=== PATIENT | female | born 1970 | race Caucasian/White ===

== ENCOUNTER → 2016-09-03 | Outpatient (CLI) | payer BC ==
[2014-10-19 15:00] VITALS: BP 145/80
[~2016-09-03] MED LIST: ALBU8.5H6 IH; ALPR1TAB2 PO; AMOX1TAB61 PO; CITA20TA5 PO; DIAZEPAM10 MG PO; ESCI20TA PO; HYDR-2666 PO; PANT40TA3 PO; TRAM50TA PO
--- NOTE | 2016-09-03 09:17 | KCIC ---
PROCEDURE Bilateral digital mammogram with CAD HISTORY Routine screening TECHNIQUE Bilateral digital routine views were obtained with computer-aided detection. COMPARISON none FINDINGS Density A: Predominantly fatty tissue. There is no suspicious mass, calcifications or areas of architectural distortion. IMPRESSION No suspicious findings. [Recommend routine screening mammography in one year.] This study was interpreted with the benefit of Computerized Aided Detection (CAD). Mammography is not 100% sensitive in detecting breast cancer. Therefore, a self breast exam and a clinical breast exam are very important. A negative mammogram does not negate a clinically suspicious finding and should not result in a delay in biopsying a clinically suspicious abnormality. BI-RADS category 1: Negative. Electronically signed by: Luciano Gutiérrez MD (Sep 03, 2016 09:15:52)
== END | disposition home or self-care (01) ==
LOC: KCIC MAMMO 08:06
PROVIDERS: ATTEND Advanced Practice Midwife
DX: Z12.31 Encounter for screening mammogram for malignant neoplasm of breast (principal)
CPT/HCPCS: G0202; 77067

== ENCOUNTER 2016-10-14 06:47 | Emergency (ER) | payer BC ==
[~2016-10-14] VITALS: Ht 170.2 cm; Wt 127.9 kg
[2016-10-14 07:00] VITALS: BP 162/75
[2016-10-14] MEDS ORDERED: IV NORMAL SALINE 1000ML BAG 1,000 ML IV SCH (07:08)
[2016-10-14] MEDS ORDERED: fentaNYL PF VIAL 100 MCG/2 ML VIAL IV PRN (07:15)
[2016-10-14] MEDS ORDERED: ONDANSETRON PF 4 MG/2 ML VIAL. IV ONE (07:15)
[2016-10-14 07:29] LABS: BILIRUBIN,URINE NEGATIVE (NEG); GLUCOSE,URINE NEGATIVE (NEG); NITRITE,URINE NEGATIVE (NEG); PH,URINE 5.5; PROTEIN,URINE 100 mg/dL (NEG-TRACE); UROBILINOGEN,URINE 0.2 mg/dL (0.2 mg/dL)
[2016-10-14 07:32] LABS: RBC,URINE TNTC /HPF (0-2)
[2016-10-14 07:33] LABS: BACTERIA,URINE MANY /HPF (0-FEW); SQUAMOUS EPITHELIAL CELL,UR MANY /LPF
[2016-10-14 07:46] LABS: BASO # 0.1 x10^3/uL (0.0-0.2); BASO % 1 % (0-3); EOS % 1 % (0-3); HEMATOCRIT 40.7 % (36.0-47.0); HEMOGLOBIN 13.1 g/dL (12.0-15.5); LYMPH % 16 % (24-48); MEAN CORPUSCULAR HEMOGLOBIN 27 pg (25-35); MEAN CORPUSCULAR HGB CONC 32 g/dL (31-37); MEAN CORPUSCULAR VOLUME 84 fL (79-100); MONO % 6 % (0-9); NEUT % 77 % (31-73); PLATELET COUNT 200 x10^3/uL (140-400); RED BLOOD COUNT 4.85 x10^6/uL (3.50-5.40); RED CELL DISTRIBUTION WIDTH 14.6 % (11.5-14.5); WHITE BLOOD COUNT 6.3 x10^3/uL (4.0-11.0)
--- NOTE | 2016-10-14 07:54 | RAD ---
CT abdomen and pelvis without contrast History: Left flank pain, left lower quadrant pain CT scan of the abdomen and pelvis was done without contrast. The lung bases are clear. There is no effusion. A liver lesion is not identified. The patient's had a cholecystectomy. Spleen and adrenal glands are normal. Pancreas is normal. There is a 5 mm calculus at the renal pelvis on the left. There is a 2 mm calculus at the upper pole of the left kidney. There is no intrarenal calculus in the right kidney. There is also a tiny punctate calculus in the mid left kidney. A ureteral calculus is not otherwise identified. Appendix is normal. Bowel pattern is normal. There is no adenopathy. Uterus and ovaries are normal. There is no free fluid in the pelvis. Impression: 1. 5 mm calculus at the renal pelvis on the left which is not currently obstructive but intermittently could be. 2. Other tiny intrarenal calculi left kidney. 3. No other ureteral calculus noted. 4. No other acute finding noted in the abdomen or pelvis. One or more of the following individualized dose reduction techniques were utilized for this examination: 1. Automated exposure control 2. Adjustment of the mA and/or kV according to patient size 3. Use of iterative reconstruction technique
[2016-10-14 07:57] LABS: CALCIUM 8.9 mg/dL (8.5-10.1); CREATININE 0.9 mg/dL (0.6-1.0); GFR 67.4; POTASSIUM 3.7 mmol/L (3.5-5.1)
[2016-10-14 08:02] LABS: ALBUMIN 3.9 g/dL (3.4-5.0); TOTAL BILIRUBIN 0.4 mg/dL (0.2-1.0); TOTAL PROTEIN 7.7 g/dL (6.4-8.2)
[2016-10-14] MEDS ORDERED: TAMS0.4C97 PO (08:13)
[2016-10-14] MEDS ORDERED: HYDR-971 PO (08:13)
--- NOTE | 2016-10-14 08:13 | PHYS DOC ---
Past Medical History Past Medical History: Anxiety, Depression Past Surgical History: Cholecystectomy, Tubal ligation, Other Additional Past Surgical Histo: left knee, radio frequency on back Alcohol Use: None Drug Use: None Adult General Chief Complaint Chief Complaint: ABDOMINAL PAIN HPI HPI Patient is a 46 year old female who was driven to the ED by her daughter with the complaint of severe pain in the left side of her abdomen. The pain woke her up early this morning and was severe, she had vomiting and dry heaves with it. She called her daughter who came to pick her up to bring her to the ED and when they were on their way here, the pain stopped. They decided to go back home and went back to sleep, then the pain woke her up again and was again severe, so she presented to the ED. Currently the pain is severe. It's described as sharp and stabbing. She's never had anything like this before. It's located on the left side of her mid back and around to the left side of her mid to lower abdomen. There is no pain on the right. She had no blood in her vomit. She's had no diarrhea. She denies possibility of . She has had her tubes tied and also is not sexually active. Last menstrual period October 02. She does not have a history of GI problems. She did have a cholecystectomy in the pain reminds her a little bit of her gallstone pain although the location is different. The patient is in good general health. Primary care physician Dr. Liu Review of Systems Review of Systems Constitutional: Denies fever or chills [] Eyes: Denies change in visual acuity, redness, or eye pain [] HENT: Denies nasal congestion or sore throat [] Respiratory: Denies cough or shortness of breath [] Cardiovascular: Denies chest pain GI: As in history of present illness : Denies dysuria or hematuria [] Musculoskeletal: Denies back pain or joint pain [] Integument: Denies rash or skin lesions [] Neurologic: Denies headache, focal weakness or sensory changes [] Current Medications Current Medications Current Medications Medications (Trade) Dose Ordered Sig/Bean Start Time Stop Time Status Last Admin Dose Admin Fentanyl Citrate (Fentanyl 2ml Vial) 50 mcg PRN Q15MIN PRN 10/14/16 07:15 10/15/16 07:14 5/29/17 07:48 50 MCG Ketorolac Tromethamine (Toradol) 30 mg 1X ONCE 10/14/16 08:15 10/14/16 08:16 Ondansetron HCl (Zofran) 4 mg 1X ONCE 10/14/16 07:15 10/14/16 07:16 DC 10/14/16 07:47 4 MG Sodium Chloride 1,000 ml @ 100 mls/hr Q10H 10/14/16 07:08 10/14/16 17:07 10/14/16 07:48 100 MLS/HR Tamsulosin HCl (Flomax) 0.4 mg 1X ONCE 10/14/16 08:15 10/14/16 08:16 Allergies Allergies Allergies Coded Allergies Type Severity Reaction Last Updated Verified No Known Drug Allergies 05/14/13 No Physical Exam Physical Exam Constitutional: Well developed, well nourished, obese, ambulatory, no acute distress, non-toxic appearance. [] HENT: Normocephalic, atraumatic, bilateral external ears normal, nose normal. [] Eyes: conjunctiva normal, no discharge. [] Neck: Normal range of motion, no stridor. [] Cardiovascular:Heart rate regular rhythm, no murmur [] Lungs & Thorax: Bilateral breath sounds clear to auscultation [] Abdomen: Bowel sounds normal, soft, obese, no tenderness, no masses, no pulsatile masses. Abdomen exam is benign. Skin: Warm, dry, no erythema, no rash. [] Back: No tenderness, no CVA tenderness. [] Extremities: No tenderness, no cyanosis, no clubbing, ROM intact, no edema. [] Neurologic: Alert and oriented X 3, normal motor function, normal sensory function, no focal deficits noted. [] Current Patient Data Vital Signs Vital Signs Date Time Temp Pulse Resp B/P (MAP) Pulse Ox O2 Delivery O2 Flow Rate FiO2 10/14/16 07:48 15 97 Room Air 10/14/16 07:00 97.7 81 162/75 (104) 97.7 Lab Values Laboratory Tests Test 10/14/16 06:13 10/14/16 06:57 10/14/16 07:38 POC Urine HCG, Qualitative Hcg negative (Negative) Urine Collection Type Unknown Urine Color Yellow Urine Clarity Cloudy Urine pH 5.5 Urine Specific [place] 1.025 Urine Protein 100 mg/dL (NEG-TRACE) Urine Glucose (UA) Negative mg/dL (NEG) Urine Ketones (Stick) Negative mg/dL (NEG) Urine Blood Large (NEG) Urine Nitrite Negative (NEG) Urine Bilirubin Negative (NEG) Urine Urobilinogen Dipstick 0.2 mg/dL (0.2 mg/dL) Urine Leukocyte Esterase Moderate (NEG) Urine RBC Tntc /HPF (0-2) Urine WBC 11-20 /HPF (0-4) Urine Squamous Epithelial Cells Many /LPF Urine Bacteria Many /HPF (0-FEW) Urine Mucus Mod /LPF White Blood Count 6.3 x10^3/uL (4.0-11.0) Red Blood Count 4.85 x10^6/uL (3.50-5.40) Hemoglobin 13.1 g/dL (12.0-15.5) Hematocrit 40.7 % (36.0-47.0) Mean Corpuscular Volume 84 fL (79-100) Mean Corpuscular Hemoglobin 27 pg (25-35) Mean Corpuscular Hemoglobin Concent 32 g/dL (31-37) Red Cell Distribution Width 14.6 % (11.5-14.5) H Platelet Count 200 x10^3/uL (140-400) Neutrophils (%) (Auto) 77 % (31-73) H Lymphocytes (%) (Auto) 16 % (24-48) L Monocytes (%) (Auto) 6 % (0-9) Eosinophils (%) (Auto) 1 % (0-3) Basophils (%) (Auto) 1 % (0-3) Neutrophils # (Auto) 4.9 x10^3uL (1.8-7.7) Lymphocytes # (Auto) 1.0 x10^3/uL (1.0-4.8) Monocytes # (Auto) 0.4 x10^3/uL (0.0-1.1) Eosinophils # (Auto) 0.1 x10^3/uL (0.0-0.7) Basophils # (Auto) 0.1 x10^3/uL (0.0-0.2) Sodium Level 146 mmol/L (136-145) H Potassium Level 3.7 mmol/L (3.5-5.1) Chloride Level 108 mmol/L (98-107) H Carbon Dioxide Level 27 mmol/L (21-32) Anion Gap 11 (6-14) Blood Urea Nitrogen 9 mg/dL (7-20) Creatinine 0.9 mg/dL (0.6-1.0) Estimated GFR (Cockcroft-Gault) 67.4 BUN/Creatinine Ratio 10 (6-20) Glucose Level 110 mg/dL (70-99) H Calcium Level 8.9 mg/dL (8.5-10.1) Total Bilirubin 0.4 mg/dL (0.2-1.0) Aspartate Amino Transferase (AST) 16 U/L (15-37) Alanine Aminotransferase (ALT) 25 U/L (14-59) Alkaline Phosphatase 63 U/L (46-116) Total Protein 7.7 g/dL (6.4-8.2) Albumin 3.9 g/dL (3.4-5.0) Albumin/Globulin Ratio 1.0 (1.0-1.7) Lipase 82 U/L (73-393) Laboratory Tests 10/14/16 07:38 Laboratory Tests 10/14/16 07:38 EKG EKG [] Radiology/Procedures Radiology/Procedures CT scan of the abdomen and pelvis read by the radiologist. There is a 5 mm calculus at the left renal pelvis which is not currently obstructive but intermittently could be. No other ureteral calculus. No other acute findings noted. [] Course & Med Decision Making Course & Med Decision Making Pertinent Labs and Imaging studies reviewed. (See chart for details) 46-year-old female presents with acute onset of left flank/left sided abdominal pain. The pain was severe, then went away, then returned. It does sound like a possible kidney stone. I discussed with the patient that we will give her IV fluids, IV pain and nausea medicines and do some tests, she is agreeable to that plan. Labs unremarkable for acute findings. CT scan does show a 5 mm stone high in the patient's left ureter. Discussed the diagnosis with the patient. She's now comfortable, watching TV with her family. We will try sending her home with NSAIDs, Flomax, hydrocodone. I emphasized if she has intractable pain at home she should return for admission. She agrees with the plan. She does have a ride home. [] Dragon Disclaimer Dragon Disclaimer This electronic medical record was generated, in whole or in part, using a voice recognition dictation system. Departure Departure Impression: Primary Impression: Renal colic on left side Additional Impression: Left ureteral stone Disposition: 01 HOME, SELF-CARE Condition: STABLE Referrals: ETJ LIU MD (PCP) Patient Instructions: Kidney Stones, [id number] Additional Instructions: As we discussed, you have a 5 mm stone high up in your left ureter, near your left kidney. It may pass, we will treat and hope for the best. Strain urine to see if it does pass. Ibuprofen 800 mg every 8 hours which will help with pain and also relax the ureter to help it pass. For more severe pain, hydrocodone as prescribed. This is an opiate, not while driving. It will be sedating and constipating. If you're using more than once or twice a day, take a laxative. This may be combined with ibuprofen. Flomax which helps relax the muscle of the ureter. Take at bedtime, you had one here in the ED, your next dose is due at bedtime Friday night, tonight. Drink plenty of fluids. Your urine should be light yellow like the color of lemonade. Follow-up with Dr. Liu in 3-5 days for recheck, sooner if problems. If your pain is too severe to be managed with medications at home, return to emergency, you may need to be admitted to the hospital if that happens. Scripts Hydrocodone/Apap 5-325 (NORCO 5-325 TABLET) 1 Each Tablet 1-2 TAB PO Q4-6HRS for kidney stone, #20 TAB Prov: KATHY RICCI MD 10/14/16 Tamsulosin Hcl (FLOMAX) 0.4 Mg Cap.er.24h 1 CAP PO DAILY for kidney stone, #14 CAP 11 Refills Prov: KATHY RICCI MD 10/14/16 Problem Qualifiers KATHY RICCI MD October 14, 2016 08:13
[2016-10-14] MEDS ORDERED: TAMSULOSIN 0.4 MG CAP.ER.24H. PO ONE (08:15)
[2016-10-14] MEDS ORDERED: KETOROLAC TROMETHAMINE 30 MG/ML INJ. IV ONE (08:15)
== END 2016-10-14 08:35 | disposition home or self-care (01) ==
LOC: ER 06:47
DX: N20.2 Calculus of kidney with calculus of ureter (principal); F41.9 Anxiety disorder, unspecified; F32.9 Major depressive disorder, single episode, unspecified; Z90.49 Acquired absence of other specified parts of digestive tract; Z98.51 Tubal ligation status
CPT/HCPCS: 36415; 74176; 80053; 81001; 81025; 83690; 85027; 87086; 96361; 96374; 96375; 99285; J1885; J2405; J3010; J7030

== ENCOUNTER → 2016-10-23 | Outpatient (CLI) | payer BC ==
[2016-10-14 07:00] VITALS: BP 162/75
[~2016-10-23] MED LIST changes: +HYDR-971 PO; +TAMS0.4C97 PO
--- NOTE | 2016-10-23 15:02 | KCIC ---
Examination: CT sinuses noncontrast: History: Chronic sinusitis Technique: Axial CT images of the sinuses were performed without contrast. Coronal and sagittal images also performed. Exposure: One or more of the following individualized dose reduction techniques were utilized for this examination: 1. Automated exposure control 2. Adjustment of the mA and/or kV according to patient size 3. Use of iterative reconstruction technique Technique: Noncontrast coronal images of the sinuses were obtained. Findings: No air-fluid levels are identified within the paranasal sinuses. The nasal cavity is unremarkable and the nasal septum is midline. No bony abnormality. Small mucous retention cyst or polyp identified in the left maxillary sinus at the junction of the anterior wall with the medial wall. The bilateral orbital globes appear intact. Impression: Small mucous retention cyst or polyp identified in the left maxillary sinus at the junction of the anterior wall with the medial wall. Electronically signed by: Jam Virk MD (10/23/2016 2:57 PM)
== END | disposition home or self-care (01) ==
LOC: KCIC CT 13:50
PROVIDERS: ATTEND Otolaryngology
DX: J32.9 Chronic sinusitis, unspecified (principal); N83.299 Other ovarian cyst, unspecified side; J33.8 Other polyp of sinus
CPT/HCPCS: 70486

== ENCOUNTER 2016-11-27 07:05 | Emergency (ER) | payer BC ==
[~2016-11-27] VITALS: Ht 170.2 cm; Wt 121.6 kg
[~2016-11-27 07:05] MED LIST changes: -ESCI20TA PO; +ESCITALOPRAM OX20 MG PO; -HYDR-2666 PO; +HYDR-2758 PO
--- NOTE | 2016-11-27 07:48 | PHYS DOC ---
Past Medical History Past Medical History: Anxiety, Depression, Kidney Stone Past Surgical History: Cholecystectomy, Tubal ligation, Other Additional Past Surgical Histo: left knee, radio frequency on back Alcohol Use: None Drug Use: None Adult General Chief Complaint Chief Complaint: ABDOMINAL PAIN HPI HPI Patient is a 46 year old female presents to the emergency department with a history of Kidney stone on the Left that measured 5 mm that was in September. Patient states that she is having the same pain and discomfort in which she had in September. Patient states she has pain that starts in her left lower back and radiates to her left lower abdominal area. She had a normal BM yesterday, denies urinary symptoms. Patient states she did have nausea and vomiting. She states she did not have any medication at home to take. She denies being asked to followup with urology. She denies fever, chills, or vaginal discharge. Patient did state she drove herself to the ED although can get someone to come after her if needed. Review of Systems Review of Systems Constitutional: Denies fever or chills [] Eyes: Denies change in visual acuity, redness, or eye pain [] HENT: Denies nasal congestion or sore throat [] Respiratory: Denies cough or shortness of breath [] Cardiovascular: No additional information not addressed in HPI [] GI: Denies abdominal pain, nausea, vomiting, bloody stools or diarrhea [] : Denies dysuria or hematuria [] Musculoskeletal: left flank pain with radiation of pain to left lower abdominal area Integument: Denies rash or skin lesions [] Neurologic: Denies headache, focal weakness or sensory changes [] Endocrine: Denies polyuria or polydipsia [] Current Medications Current Medications Current Medications Medications (Trade) Dose Ordered Sig/[facility] Start Time Stop Time Status Last Admin Dose Admin Ketorolac Tromethamine (Toradol) 30 mg 1X ONCE 11/27/16 08:15 11/27/16 08:16 DC 11/27/16 08:17 30 MG Ondansetron HCl (Zofran) 4 mg 1X ONCE 11/27/16 08:15 11/27/16 08:16 DC 11/27/16 08:17 4 MG Sodium Chloride 1,000 ml @ 1,000 mls/hr 1X ONCE 11/27/16 08:15 11/27/16 09:14 DC 11/27/16 08:18 1,000 MLS/HR Allergies Allergies Allergies Coded Allergies Type Severity Reaction Last Updated Verified No Known Drug Allergies 05/14/13 No Physical Exam Physical Exam Constitutional: Well developed, well nourished, no acute distress, non-toxic appearance. [] HENT: Normocephalic, atraumatic, bilateral external ears normal, oropharynx moist, no oral exudates, nose normal. [] Eyes: PERRLA, EOMI, conjunctiva normal, no discharge. [] Neck: Normal range of motion, no tenderness, supple, no stridor. [] Cardiovascular:Heart rate regular rhythm, no murmur [] Lungs & Thorax: Bilateral breath sounds clear to auscultation [] Abdomen: Bowel sounds hypoactive, soft, no tenderness, no masses, no pulsatile masses. [] Skin: Warm, dry, no erythema, no rash. [] Back: No tenderness, no CVA tenderness. [] Extremities: No tenderness, no cyanosis, no clubbing, ROM intact, no edema. [] Neurologic: Alert and oriented X 3, normal motor function, normal sensory function, no focal deficits noted. [] Psychologic: Affect normal, judgement normal, mood normal. [] Current Patient Data Vital Signs Vital Signs Date Time Temp Pulse Resp B/P (MAP) Pulse Ox O2 Delivery O2 Flow Rate FiO2 11/27/16 07:27 98.2 73 16 132/81 (98) 98 Room Air 98.2 Lab Values Laboratory Tests Test 11/27/16 07:19 11/27/16 08:10 Urine Color Yellow Urine Clarity Clear Urine pH 5.5 Urine Specific [place] <=1.005 Urine Protein Negative mg/dL (NEG-TRACE) Urine Glucose (UA) Negative mg/dL (NEG) Urine Ketones (Stick) Negative mg/dL (NEG) Urine Blood Large (NEG) Urine Nitrite Negative (NEG) Urine Bilirubin Negative (NEG) Urine Urobilinogen Dipstick 0.2 mg/dL (0.2 mg/dL) Urine Leukocyte Esterase Trace (NEG) Urine RBC 11-20 /HPF (0-2) Urine WBC Occ /HPF (0-4) Urine Squamous Epithelial Cells Few /LPF Urine Bacteria 0 /HPF (0-FEW) Urine Test Negative (NEG) White Blood Count 6.0 x10^3/uL (4.0-11.0) Red Blood Count 4.98 x10^6/uL (3.50-5.40) Hemoglobin 13.8 g/dL (12.0-15.5) Hematocrit 41.8 % (36.0-47.0) Mean Corpuscular Volume 84 fL (79-100) Mean Corpuscular Hemoglobin 28 pg (25-35) Mean Corpuscular Hemoglobin Concent 33 g/dL (31-37) Red Cell Distribution Width 15.3 % (11.5-14.5) H Platelet Count 206 x10^3/uL (140-400) Neutrophils (%) (Auto) 67 % (31-73) Lymphocytes (%) (Auto) 24 % (24-48) Monocytes (%) (Auto) 8 % (0-9) Eosinophils (%) (Auto) 1 % (0-3) Basophils (%) (Auto) 1 % (0-3) Neutrophils # (Auto) 4.0 x10^3uL (1.8-7.7) Lymphocytes # (Auto) 1.4 x10^3/uL (1.0-4.8) Monocytes # (Auto) 0.5 x10^3/uL (0.0-1.1) Eosinophils # (Auto) 0.1 x10^3/uL (0.0-0.7) Basophils # (Auto) 0.0 x10^3/uL (0.0-0.2) Sodium Level 145 mmol/L (136-145) Potassium Level 3.9 mmol/L (3.5-5.1) Chloride Level 108 mmol/L (98-107) H Carbon Dioxide Level 28 mmol/L (21-32) Anion Gap 9 (6-14) Blood Urea Nitrogen 14 mg/dL (7-20) Creatinine 0.9 mg/dL (0.6-1.0) Estimated GFR (Cockcroft-Gault) 67.4 BUN/Creatinine Ratio 16 (6-20) Glucose Level 106 mg/dL (70-99) H Calcium Level 8.7 mg/dL (8.5-10.1) Total Bilirubin 0.5 mg/dL (0.2-1.0) Aspartate Amino Transferase (AST) 17 U/L (15-37) Alanine Aminotransferase (ALT) 31 U/L (14-59) Alkaline Phosphatase 54 U/L (46-116) Total Protein 7.6 g/dL (6.4-8.2) Albumin 3.9 g/dL (3.4-5.0) Albumin/Globulin Ratio 1.1 (1.0-1.7) Laboratory Tests 11/27/16 08:10 Laboratory Tests 11/27/16 08:10 EKG EKG [] Radiology/Procedures Radiology/Procedures [][facility] [address] [place] [address] IMAGING REPORT Signed PATIENT: GABRIEL MARTINEZ ACCOUNT: [id number] : 1970 LOCATION: ER AGE: 46 SEX: F EXAM STATUS: REG ER ORD. PHYSICIAN: POLY LONGO CYTOTECHNOLOGIST/CYTOLOGY SUPERVISOR REASON: left flank pain with radiation around to lower abdominal area, HX stone May PROCEDURE: CT ABDOMEN PELVIS WO CONTRAST CT abdomen/pelvis without contrast 11/27/2016 at 0856 hours Indication: Left flank pain for years Comparison: Abdomen/pelvis 10/14/2016 Technique: Portable axial CT images of the abdomen and pelvis were acquired without intravenous contrast. Oral contrast was not administered. Findings: Lung bases are clear. Heart size is within normal limits. Evaluation of the solid abdominal viscera is limited by lack of intravenous contrast. The liver is normal. The spleen is normal. Bilateral adrenal glands are normal. The gallbladder is present without adjacent inflammatory changes. Pancreas is normal in appearance. The abdominal aorta is normal in course and caliber. IVC is patent. There are no enlarged lymph nodes in the abdomen or pelvis. There is no free intraperitoneal air. No free fluid within the abdomen or pelvis. There is a 5 mm nonobstructing calculus in the superior pole of the left kidney, slightly increased since 10/14/2016 where it measured 3-4 mm. There is a 2 mm nonobstructing calculus in the interpolar region of the left kidney, stable. There is a 7 mm calculus in the inferior pole the left kidney, which may represent the previously described calculus in the left renal pelvis. Alternatively, the previously described calculus may have passed and a new calculus may have formed. There is no hydronephrosis. No contour deforming renal mass. Small and large bowel are normal in caliber. A normal appendix is visualized. No pericolonic inflammatory changes are present. The urinary bladder is normal in appearance. No adnexal masses are identified. No suspicious osseous lesions are identified. Impression: 1. There is a 7 mm calculus in the inferior pole of the left kidney. This may represent the previously described calculus in the left renal pelvis which may have refluxed back into the renal calyx. Alternatively, the previously described stone may have passed and a new stone may have formed. There is no hydroureteronephrosis. 2. Additional nonobstructing calculi are identified in the left kidney measuring up to 5 mm in the superior pole. PQRS Compliance Statement: One or more of the following individualized dose reduction techniques were utilized for this examination: 1. Automated exposure control 2. Adjustment of the mA and/or kV according to patient size 3. Use of iterative reconstruction technique DICTATED and SIGNED BY: GISELLE JETT MD DATE: 11/27/16924 CC: POLY LONGO APRN; TEJ CRUM MD ~ Course & Med Decision Making Course & Med Decision Making Pertinent Labs and Imaging studies reviewed. (See chart for details) Patient's CBC, CMP were normal. Urine was positive for UTI as well as kidney stones in the pole of the left kidney. Patient will be provided with Macrobid to take for the urinary tract infection. She'll be encouraged to drink plenty of fluids such as water and cranberry juice. Avoid cranberry juice cocktail, carbonated beverages, citrus fruits and alcohol sees her considered irritants to the bladder. Patient will also be encouraged to follow up with urology at . Signs and symptoms to return back to emergency department as been provided. Patient was also instructed to strain all urine. She'll also be provided with Flomax. [] Dragon Disclaimer Dragon Disclaimer This electronic medical record was generated, in whole or in part, using a voice recognition dictation system. Departure Departure Impression: Primary Impression: Kidney stone Additional Impression: UTI (urinary tract infection) Disposition: 01 HOME, SELF-CARE Condition: STABLE Referrals: TEJ CRUM MD (PCP) Patient Instructions: Diet for Kidney Stones, Kidney Stones, [id number], Urinary Tract Infection, [id number] Additional Instructions: Activity as tolerated Medication as prescribed Drink plenty of fluids such as water and cranberry juice Avoid cranberry juice cocktail, carbonated beverages, citrus fruits, caffeine and alcohol as these are considered irritants to the bladder Strain all urine Followup with urology Return to emergency department as needed for signs and symptoms that become worse. These are Urologist at Dr. Cedrick Georges (Ronda Horn) [phone], Drs. Isidoro Daniels and Clive Diana (Harriet Todd) [phone], Drs. Hakan Feliciano and Andrew Pinedo (Lena Menendez) [phone], Fax Drs. Syeda Pathak, Geovanna Garcia and Sohan Badillo (Yoseph Aguilar) [phone] , Dr. Timbo Sheriff and CYNDY Roldan (Jonnie Bella) [phone], Fax Drs. Maximus Moser and Solitario Rowe (Rachel Alvarez) [phone], Fax Dr. Marcelo Pedraza and Maikol Angelo PA-C (Ana [place]) [phone], Fax Drs. Myah Barnes, Ace Pradhan and Luciano Hanna, III (Judi Mayberry) [phone], Scripts Nitrofurantoin Monohyd/M-Cryst (MACROBID 100 MG CAPSULE) 100 Mg Capsule 1 CAP PO BID, #14 CAP Prov: POLY LONGO APRN 11/27/16 Problem Qualifiers POLY LONGO APRN Nov 27, 2016 07:48
[2016-11-27 07:51] LABS: NEG OBC UR NEG; POS OBC UR POS
[2016-11-27 07:59] LABS: BILIRUBIN,URINE NEGATIVE (NEG); GLUCOSE,URINE NEGATIVE (NEG); NITRITE,URINE NEGATIVE (NEG); PH,URINE 5.5; PROTEIN,URINE NEGATIVE (NEG-TRACE); UROBILINOGEN,URINE 0.2 mg/dL (0.2 mg/dL)
[2016-11-27 08:03] LABS: BACTERIA,URINE 0 /HPF (0-FEW); SQUAMOUS EPITHELIAL CELL,UR FEW /LPF; WBC,URINE OCC /HPF (0-4)
[2016-11-27] MEDS ORDERED: IV NORMAL SALINE 1000ML BAG 1,000 ML IV ONE (08:15)
[2016-11-27] MEDS ORDERED: ONDANSETRON PF 4 MG/2 ML VIAL. IV ONE (08:15)
[2016-11-27] MEDS ORDERED: KETOROLAC TROMETHAMINE 30 MG/ML INJ. IV ONE (08:15)
[2016-11-27 08:16] LABS: BASO % 1 % (0-3); EOS % 1 % (0-3); HEMATOCRIT 41.8 % (36.0-47.0); HEMOGLOBIN 13.8 g/dL (12.0-15.5); LYMPH # 1.4 x10^3/uL (1.0-4.8); LYMPH % 24 % (24-48); MEAN CORPUSCULAR HEMOGLOBIN 28 pg (25-35); MEAN CORPUSCULAR HGB CONC 33 g/dL (31-37); MEAN CORPUSCULAR VOLUME 84 fL (79-100); MONO % 8 % (0-9); NEUT % 67 % (31-73); PLATELET COUNT 206 x10^3/uL (140-400); RED BLOOD COUNT 4.98 x10^6/uL (3.50-5.40); RED CELL DISTRIBUTION WIDTH 15.3 % (11.5-14.5)
[2016-11-27 08:26] LABS: CALCIUM 8.7 mg/dL (8.5-10.1); CREATININE 0.9 mg/dL (0.6-1.0); GFR 67.4; POTASSIUM 3.9 mmol/L (3.5-5.1)
[2016-11-27 08:31] LABS: ALBUMIN 3.9 g/dL (3.4-5.0); ALBUMIN/GLOBULIN RATIO 1.1 (1.0-1.7); TOTAL BILIRUBIN 0.5 mg/dL (0.2-1.0); TOTAL PROTEIN 7.6 g/dL (6.4-8.2)
--- NOTE | 2016-11-27 09:45 | RAD ---
CT abdomen/pelvis without contrast 11/27/2016 at 0856 hours Indication: Left flank pain for years Comparison: Abdomen/pelvis 10/14/2016 Technique: Portable axial CT images of the abdomen and pelvis were acquired without intravenous contrast. Oral contrast was not administered. Findings: Lung bases are clear. Heart size is within normal limits. Evaluation of the solid abdominal viscera is limited by lack of intravenous contrast. The liver is normal. The spleen is normal. Bilateral adrenal glands are normal. The gallbladder is present without adjacent inflammatory changes. Pancreas is normal in appearance. The abdominal aorta is normal in course and caliber. IVC is patent. There are no enlarged lymph nodes in the abdomen or pelvis. There is no free intraperitoneal air. No free fluid within the abdomen or pelvis. There is a 5 mm nonobstructing calculus in the superior pole of the left kidney, slightly increased since 10/14/2016 where it measured 3-4 mm. There is a 2 mm nonobstructing calculus in the interpolar region of the left kidney, stable. There is a 7 mm calculus in the inferior pole the left kidney, which may represent the previously described calculus in the left renal pelvis. Alternatively, the previously described calculus may have passed and a new calculus may have formed. There is no hydronephrosis. No contour deforming renal mass. Small and large bowel are normal in caliber. A normal appendix is visualized. No pericolonic inflammatory changes are present. The urinary bladder is normal in appearance. No adnexal masses are identified. No suspicious osseous lesions are identified. Impression: 1. There is a 7 mm calculus in the inferior pole of the left kidney. This may represent the previously described calculus in the left renal pelvis which may have refluxed back into the renal calyx. Alternatively, the previously described stone may have passed and a new stone may have formed. There is no hydroureteronephrosis. 2. Additional nonobstructing calculi are identified in the left kidney measuring up to 5 mm in the superior pole. PQRS Compliance Statement: One or more of the following individualized dose reduction techniques were utilized for this examination: 1. Automated exposure control 2. Adjustment of the mA and/or kV according to patient size 3. Use of iterative reconstruction technique
[2016-11-27 10:00] VITALS: BP 157/75
[2016-11-27] MEDS ORDERED: NITR100C62 PO (10:05)
[2016-11-27] MEDS ORDERED: KETO10TA PO (10:07)
[2016-11-27] MEDS ORDERED: ONDA4TAB10 SL (10:07)
== END 2016-11-27 10:35 | disposition home or self-care (01) ==
LOC: ER 07:05
DX: N20.0 Calculus of kidney (principal); N39.0 Urinary tract infection, site not specified; Z98.51 Tubal ligation status; Z90.49 Acquired absence of other specified parts of digestive tract; Z98.890 Other specified postprocedural states
CPT/HCPCS: 36415; 74176; 80053; 81001; 81025; 85027; 87086; 96361; 96374; 96375; 99285; J1885; J2405; J7030

== ENCOUNTER 2016-12-04 12:50 | Emergency (ER) | payer BC ==
[~2016-12-04] VITALS: Ht 170.2 cm; Wt 121.6 kg
[~2016-12-04 12:50] MED LIST changes: +KETO10TA PO; +NITR100C62 PO; +ONDA4TAB10 SL
--- NOTE | 2016-12-04 13:27 | PHYS DOC ---
Past Medical History Past Medical History: Anxiety, Depression, Kidney Stone Past Surgical History: Cholecystectomy, Tubal ligation, Other Additional Past Surgical Histo: left knee, radio frequency on back Alcohol Use: None Drug Use: None Adult General Chief Complaint Chief Complaint: BLOOD IN URINE HPI HPI This is a pleasant 46-year-old female who presents with hematuria that began earlier this morning. Patient was concerned with her dysuria or hematuria frequency that was associated with her recent kidney stone diagnosis. She was diagnosed last week in our ER with a kidney stone a 5 mm and a 7 mm stone within the kidney last week. She called ask a nurse who advised with her hematuria to return to the ER. Patient's pain is moderate in nature described as a 6 of 10 worse with urination. It does radiate from the back to the lower flank on the left side. This is consistent with a diagnosis of her prior kidney stones. Patient denies any fevers denies any chills but has had some diaphoresis with pain in waves. Patient states nothing really makes the pain better or worse. Patient denies any diarrhea vomiting or other systemic symptoms. Patient also denies any trauma denies any vaginal bleeding. IMAGING REPORT Signed PATIENT: GABRIEL MARTINEZ ACCOUNT: [id number] : 1970 LOCATION: ER AGE: 46 SEX: F EXAM STATUS: REG ER ORD. PHYSICIAN: POLY LONGO APRN REASON: left flank pain with radiation around to lower abdominal area, HX stone May PROCEDURE: CT ABDOMEN PELVIS WO CONTRAST CT abdomen/pelvis without contrast 11/27/2016 at 0856 hours Indication: Left flank pain for years Comparison: Abdomen/pelvis 10/14/2016 Technique: Portable axial CT images of the abdomen and pelvis were acquired without intravenous contrast. Oral contrast was not administered. Findings: Lung bases are clear. Heart size is within normal limits. Evaluation of the solid abdominal viscera is limited by lack of intravenous contrast. The liver is normal. The spleen is normal. Bilateral adrenal glands are normal. The gallbladder is present without adjacent inflammatory changes. Pancreas is normal in appearance. The abdominal aorta is normal in course and caliber. IVC is patent. There are no enlarged lymph nodes in the abdomen or pelvis. There is no free intraperitoneal air. No free fluid within the abdomen or pelvis. There is a 5 mm nonobstructing calculus in the superior pole of the left kidney, slightly increased since 10/14/2016 where it measured 3-4 mm. There is a 2 mm nonobstructing calculus in the interpolar region of the left kidney, stable. There is a 7 mm calculus in the inferior pole the left kidney, which may represent the previously described calculus in the left renal pelvis. Alternatively, the previously described calculus may have passed and a new calculus may have formed. There is no hydronephrosis. No contour deforming renal mass. Small and large bowel are normal in caliber. A normal appendix is visualized. No pericolonic inflammatory changes are present. The urinary bladder is normal in appearance. No adnexal masses are identified. No suspicious osseous lesions are identified. Impression: 1. There is a 7 mm calculus in the inferior pole of the left kidney. This may represent the previously described calculus in the left renal pelvis which may have refluxed back into the renal calyx. Alternatively, the previously described stone may have passed and a new stone may have formed. There is no hydroureteronephrosis. 2. Additional nonobstructing calculi are identified in the left kidney measuring up to 5 mm in the superior pole. PQRS Compliance Statement: One or more of the following individualized dose reduction techniques were utilized for this examination: 1. Automated exposure control 2. Adjustment of the mA and/or kV according to patient size 3. Use of iterative reconstruction technique DICTATED and SIGNED BY: GISELLE JETT MD DATE: 11/27/16 0925 CC: POLY LONGO APRN; TEJ CRUM MD ~ Review of Systems Review of Systems Constitutional: Denies fever or chills patient does complain of diaphoresis with waves of pain. Eyes: Denies change in visual acuity, redness, or eye pain [] HENT: Denies nasal congestion or sore throat [] Respiratory: Denies cough or shortness of breath [] Cardiovascular: No additional information not addressed in HPI [] GI: He does complain of left flank pain no nausea no vomiting or diarrhea. [] : He does complain of dysuria and hematuria Musculoskeletal: Denies back pain or joint pain [] Integument: Denies rash or skin lesions [] Neurologic: Denies headache, focal weakness or sensory changes [] Endocrine: Denies polyuria or polydipsia [] Current Medications Current Medications Current Medications Medications (Trade) Dose Ordered Sig/Bean Start Time Stop Time Status Last Admin Dose Admin Ketorolac Tromethamine (Toradol Im) 60 mg 1X ONCE 12/04/16 13:30 12/04/16 13:31 DC 12/04/16 13:31 60 MG Ondansetron HCl (Zofran Odt) 4 mg 1X ONCE 12/04/16 13:30 12/04/16 13:31 DC 12/04/16 13:30 4 MG Allergies Allergies Allergies Coded Allergies Type Severity Reaction Last Updated Verified No Known Drug Allergies 05/14/13 No Physical Exam Physical Exam Constitutional: Well developed, well nourished, no acute distress, non-toxic appearance. Patient is obese Cardiovascular:Heart rate regular rhythm, no murmur [] Lungs & Thorax: Bilateral breath sounds clear to auscultation [] Abdomen: Bowel sounds normal, soft, no tenderness, no masses, no pulsatile masses. [] Skin: Warm, dry, no erythema, no rash. [] Back: No tenderness, no CVA tenderness. [] Current Patient Data Vital Signs Vital Signs Date Time Temp Pulse Resp B/P (MAP) Pulse Ox O2 Delivery O2 Flow Rate FiO2 12/04/16 13:05 98.4 83 34 146/87 (106) 98 Room Air 98.4 Lab Values Laboratory Tests Test 12/04/16 14:03 12/04/16 14:55 POC Urine HCG, Qualitative Hcg negative (Negative) Urine Collection Type Unknown Urine Color Cheryl Urine Clarity Cloudy Urine pH 5.5 Urine Specific [place] 1.020 Urine Protein Negative mg/dL (NEG-TRACE) Urine Glucose (UA) Negative mg/dL (NEG) Urine Ketones (Stick) 40 mg/dL (NEG) Urine Blood Negative (NEG) Urine Nitrite Negative (NEG) Urine Bilirubin Small (NEG) Urine Urobilinogen Dipstick 0.2 mg/dL (0.2 mg/dL) Urine Leukocyte Esterase Moderate (NEG) Urine RBC Occ /HPF (0-2) Urine WBC 11-20 /HPF (0-4) Urine Squamous Epithelial Cells Mod /LPF Urine Bacteria Few /HPF (0-FEW) Urine Mucus Marked /LPF EKG EKG [] Radiology/Procedures Radiology/Procedures [] IMAGING REPORT Signed PATIENT: GABRIEL MARTINEZ ACCOUNT: [id number] : 1970 LOCATION: ER AGE: 46 SEX: F EXAM STATUS: REG ER ORD. PHYSICIAN: EZEKIEL COLEMAN MD REASON: flank pain left known kidney stone PROCEDURE: KUB INDICATION: flank pain left known kidney stone COMPARISON: 11/27/2016 IMPRESSION: 2 views of abdomen and pelvis obtained. 5 mm calcification in the left hemipelvis. Although this could be secondary to the patient's left adnexal calcification seen on recent CT a left distal ureter stone is within the differential. There is bowel content projecting over the lower pole the left kidney which makes evaluation for residual left renal calculus Limited. Surgical clips right-side of abdomen. Degenerative changes of lower lumbar spine. DICTATED and SIGNED BY: MEENA MCNAIR MD DATE: 12/04/16 2214 CC: EZEKIEL COLEMAN MD; TEJ CRUM MD ~ Course & Med Decision Making Course & Med Decision Making Pertinent Labs and Imaging studies reviewed. (See chart for details) [] Patient presented with hematuria and lower abdominal pain. Flank with a history consistent with kidney stones. I have reviewed her old CAT scan results and determine that we will just complete a KUB to see if the stones removed. Patient also dominate a urinalysis to ensure that she is none detected. At this time she is able to tolerate oral fluid challenges to drink orally she was provided ODT Zofran and Toradol for her pain. We will use no narcotics on her today because she is driven to the hospital. time Is now 126. Time is now 2:10 PM patient feels markedly better after Toradol and Zofran. Waiting for urinalysis to be completed acute ulcers are noted and reviewed there is a small calcified nodule within the left hemipelvis likely associated with her prior kidney stone Time is now 3:06 patient's urinalysis urine [id number] test is negative pending urinalysis. Time is now 343 urinalysis finally returns is considerably contaminated it demonstrates red blood cells, white blood cells, bacteria and epithelial cells in great amounts Impression: Nephrolithiasis, hematuria, abdominal pain Disposition: PCP follow-up urology follow-up appointment rescheduled on Friday next week. Please return for any new or increasing symptoms or if you have any questions or concerns. Dragon Disclaimer Dragon Disclaimer This electronic medical record was generated, in whole or in part, using a voice recognition dictation system. Departure Departure Impression: Primary Impression: Kidney stone Additional Impression: Hematuria Disposition: HOME, SELF-CARE Condition: IMPROVED Referrals: TEJ CRUM MD (PCP) Patient Instructions: Hematuria, Adult, Kidney Stones Additional Instructions: Please return for any new or increasing symptoms or feel any question concerns. I would advise that you follow-up with urologist as planned please return for any fevers greater than 102.2 or inability to urinate greater than 8-12 hours. Scripts Ondansetron (ZOFRAN ODT) 4 Mg Tab.rapdis 4 MG PO BID Y for NAUSEA/VOMITING for 5 Days, #10 TAB Prov: EZEKIEL COLEMAN MD 12/04/16 Naproxen (NAPROSYN) 500 Mg Tablet 1 TAB PO BID, #14 TAB 1 Refill Prov: EZEKIEL COLEMAN MD 12/04/16 Problem Qualifiers EZEKIEL COLEMAN MD Dec 04, 2016 13:27
[2016-12-04] MEDS ORDERED: KETOROLAC TROMETHAMINE 60 MG/2 ML INJ. IM ONE (13:30)
[2016-12-04] MEDS ORDERED: ONDANSETRON ODT 4 MG TAB.RAPDIS. PO ONE (13:30)
--- NOTE | 2016-12-04 14:13 | RAD ---
INDICATION: flank pain left known kidney stone COMPARISON: 11/27/2016 IMPRESSION: 2 views of abdomen and pelvis obtained. 5 mm calcification in the left hemipelvis. Although this could be secondary to the patient's left adnexal calcification seen on recent CT a left distal ureter stone is within the differential. There is bowel content projecting over the lower pole the left kidney which makes evaluation for residual left renal calculus Limited. Surgical clips right-side of abdomen. Degenerative changes of lower lumbar spine.
[2016-12-04 15:06] LABS: BILIRUBIN,URINE SMALL (NEG); GLUCOSE,URINE NEGATIVE (NEG); NITRITE,URINE NEGATIVE (NEG); PH,URINE 5.5; PROTEIN,URINE NEGATIVE (NEG-TRACE); UROBILINOGEN,URINE 0.2 mg/dL (0.2 mg/dL)
[2016-12-04] MEDS ORDERED: ONDA4TAB10 PO (15:11)
[2016-12-04] MEDS ORDERED: NAPR500T PO (15:11)
[2016-12-04 15:32] LABS: BACTERIA,URINE FEW /HPF (0-FEW); RBC,URINE OCC /HPF (0-2); SQUAMOUS EPITHELIAL CELL,UR MOD /LPF
[2016-12-04 15:41] VITALS: BP 140/83
== END 2016-12-04 15:45 | disposition home or self-care (01) ==
LOC: ER 12:50
DX: N20.0 Calculus of kidney (principal); R31.9 Hematuria, unspecified; Z90.49 Acquired absence of other specified parts of digestive tract; Z98.51 Tubal ligation status; Z98.890 Other specified postprocedural states
CPT/HCPCS: 74000; 81001; 81025; 87086; 96372; 99285; J1885; Q0162

== ENCOUNTER → 2019-12-03 | Outpatient (CLI) | payer BC ==
[~2019-12-03] MED LIST changes: -CITA20TA5 PO; +CITA20TA6 PO; +CITA40TA5 PO; -HYDR-2758 PO; +HYDR-2761 PO; +HYDR-3164 PO; -HYDR-971 PO; +IOHEXOL 180 MG/ML 10 ML VIAL. ONE; +NAPR-683 PO; +ONDA4TAB10 PO; -PANT40TA3 PO; +PANT40TA77 PO; +TRIA1CAP3 PO; +methylPREDNISolone ACETATE 40 MG/ML VIAL. ONE; +methylPREDNISolone ACETATE 80 MG/ML VIAL. ONE
--- NOTE | 2019-12-03 14:14 | PAIN ---
DATE OF SERVICE: 12/03/2019 INITIAL CONSULTATION FOR PAIN CLINIC CHIEF COMPLAINT: Low back and bilateral lower extremity pain, right greater than left. HISTORY OF PRESENT ILLNESS: This is a 49-year-old female who presents with history of pain for many years in the low back and bilateral lower extremities, worse over the past 6-8 months or so without any specific injury or action that she is aware of, but the patient reports the pain is getting worse with daily activities, working, standing, walking, changing positions, awakens her from sleep about once a night. The patient reports it does not affect her walking significantly, but does when she is on her feet, standing and bending for more than even a few minutes. The patient reports it can affect her bowel or bladder control, but no incontinence, just increased frequency. The patient reports the pain is across the low back into the posterior gluteus, posterior thighs and posterior calves, again worse on the right than the left, but present in both legs. The patient reports it is sharp, changes during the day, worse with activity. Again, it is described as tingling, intermittent in intensity, aching in the back, radiating to the lower extremities. The patient rates her disability score 0-10, 10 being the worst, is a 5 with family home responsibilities and social activity, 0 with recreation, 3 with occupation and self-care, 0 with sexual behavior, 1 with life support activities. The patient has been taking ovvy-biw-dajsgde Tylenol intermittently, which helps only in small amount. She has also had chiropractic treatment, which does help, but only temporarily and she has had that ongoing for many years and most recently about 1 week ago. The patient reports no other complaints, no other studies or therapies performed at this time. PAST MEDICAL HISTORY: Significant for hypertension, obesity, arthritis. PREVIOUS SURGERY: Include pilonidal cystectomy at age 21, tubal ligation in 2004, cholecystectomy in 2009, left knee surgery in 2012 and again in 2014. CURRENT MEDICATIONS: Include citalopram and triamterene. ALLERGIES: The patient has no known drug allergies. FAMILY HISTORY: Significant for no major medical problems or conditions that she is aware of. SOCIAL HISTORY: The patient drinks about 1 alcoholic drink every 2-3 months, does not smoke. Denies any illegal, illicit or recreational drugs. 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 Reports she is not only in a sedentary position at her desk, she is up and down, moving items and is on her feet for lot of her working day as well. REVIEW OF SYSTEMS: The patient's review of systems is positive for those items mentioned in history of present illness. All systems reviewed and otherwise negative. It is complete, full and well documented on the patient's chart. PHYSICAL EXAMINATION: VITAL SIGNS: The patient's blood pressure is 145/82, pulse 85, respirations 18, temperature 98.0 degrees Fahrenheit, height is 5 feet 7 inches and weight is 310 pounds. GENERAL: The patient is awake, alert, oriented, appropriate, very pleasant demeanor. HEENT: Shows normocephalic, atraumatic. Extraocular movements are intact and symmetrical. Oral cavity: Mucous membranes moist and pink. Dentition is intact. NECK: Shows anterior throat supple without palpable lymphadenopathy noted. Swallow reflex symmetrical. CHEST: Shows normal on inspection. Breath sounds clear to auscultation bilaterally. HEART: Shows S1, S2 clear. No murmurs auscultated. ABDOMEN: Soft, nontender, obese, nondistended. No palpable organomegaly is noted. No rebound or guarding demonstrated. BACK: Shows spine grossly in the midline. Normal appearing thoracic kyphosis. Some slight flattening of lumbar lordotic curvature. Lumbar paraspinous muscle shows symmetrical on inspection, with palpation shows some moderate tenderness diffusely bilaterally going diffusely without significant radiation. The patient does show good rotational motion of lumbar spine, both laterally greater than 10 degrees right and left as well as extension, but without significant pain with forward flexion. No specific tenderness over the spinous processes over the sacroiliac regions. Some minor tenderness over the right-sided posterior superior iliac spine, but diffusely tender in the low lumbar distribution of the paraspinous muscles diffusely bilaterally without trigger points or radiation. EXTREMITIES: The patient's lower extremities show deep tendon reflexes at 2+ in the patellar, 1+ tendo-calcaneus tendons. Motor exam is strong with 5/5 dorsiflexion, extension, quadriceps and hamstring flexion symmetrical. Peripheral pulses are 1+ posterior tibia. No peripheral edema is noted bilaterally. Lower extremities are warm and dry to touch, equal in color and appearance. Straight leg raise noted to be positive on the right about 45 degrees, but decreased with knee flexion, left side is negative. Gaenslen's and Kyle's maneuvers are grossly negative bilaterally. The patient is able to stand, stand on her toes without significant difficulty, walks with a normal-appearing gait, does not appear to favor the right or left lower extremity significantly with a short walking distance in the office today, does not use any assistive devices such as canes or walkers to ambulate. SKIN: Shows warm and dry, good turgor. No edema. No sores, rashes or bruising throughout. IMPRESSION: 1. This is a 49-year-old female with a long history of low back pain, more recently 6-8 months, radiating pain in the lower extremities, right greater than left in a radicular fashion. 2. Arthritis. 3. Hypertension. 4. Obesity. PLAN: Options were discussed with the patient including conservative medical management, physical therapy, interventional techniques and she would like to pursue interventional techniques. We discussed a lumbar epidural steroid injection using description as well as anatomical models to describe the procedure. Risks were then discussed including, but not limited to bleeding, infection, possibility of epidural hematoma, subsequent neurological compromise, dural puncture, headaches, spinal cord and/or nerve damage, side effects of steroid medication and poor results regarding pain control. The patient understands and wished to proceed. The patient will return to clinic in approximately 2 weeks for followup. She was counseled on return appointment, activity level and side effects to be aware of. DIAGNOSES: Lumbar radiculopathy with lumbar degenerative disk disease. PROCEDURE: Lumbar epidural steroid injection, translaminar approach at L5-S1 level using C-arm fluoroscopic guidance under sterile prep and drape using local anesthetic. MEDICATION INJECTED: A total of 120 mg Depo-Medrol plus 10 mL preservative-free normal saline and 2 mL of contrast. CONDITION AT DISCHARGE: Stable. The patient tolerated the procedure well, had no complications. BRANDY MARTINEZ MD DR: OSCAR/jason JOB#: [id number] / [id number] TEJ Falcon MD
== END | disposition home or self-care (01) ==
LOC: PNCL 10:34
PROVIDERS: ATTEND Anesthesiology
DX: M51.16 Intervertebral disc disorders with radiculopathy, lumbar region (principal); M19.90 Unspecified osteoarthritis, unspecified site; I10 Essential (primary) hypertension; M79.662 Pain in left lower leg; M79.661 Pain in right lower leg; Z79.899 Other long term (current) drug therapy; Z98.51 Tubal ligation status; Z98.890 Other specified postprocedural states
CPT/HCPCS: 62323; J1030; J1040; Q9965

== ENCOUNTER → 2019-12-17 | Outpatient (CLI) | payer BC ==
--- NOTE | 2019-12-17 10:16 | PAIN ---
DATE OF SERVICE: 12/17/2019 PROGRESS NOTE FOR PAIN CLINIC DIAGNOSIS: Lumbar radiculopathy with lumbar degenerative disk disease. HISTORY OF PRESENT ILLNESS: The patient is a 49-year-old female who returns for followup status post lumbar epidural steroid injection x 1. The patient reports about 50% improvement, initially she was doing much better, but she slipped and fell on some wet stairs about 2 days after her injection and the pain was beginning to return in the low back and left lower extremity. The patient reports still with about 50% better than it was. The patient reports it is a 9 on a scale of 10 at its worst over the past week, 5 on average, 3 at its least and is a 5 today. The patient reports it can be sharp and dull in the low back, radiating, becoming more constant with walking, standing, changing positions or sitting for a prolonged period. The patient reports it is generally better with lying down, does not awaken her from sleep at night. The patient reports no new motor or sensory deficits, no new bowel or bladder incontinence or other complaints. PHYSICAL EXAMINATION: VITAL SIGNS: The patient's blood pressure 140/77, pulse 85, respirations 18, temperature 98.6 degrees Fahrenheit, height is 5 feet 7 inches, weight is 308 pounds. GENERAL: The patient is awake, alert, oriented, appropriate, very pleasant demeanor. HEENT: Shows normocephalic, atraumatic. Extraocular movements are intact and symmetrical. Oral cavity shows mucous membranes moist and pink. Dentition is intact. NECK: Shows anterior throat supple without palpable lymphadenopathy noted. Swallow reflex symmetrical. CHEST: Shows normal on inspection. Breath sounds are clear bilaterally. No rales, rhonchi or wheezes auscultated. HEART: Shows S1, S2 clear. No murmurs auscultated. ABDOMEN: Soft, nontender, nondistended. No palpable organomegaly is noted. No rebound or guarding demonstrated. BACK: Shows spine grossly in the midline, slight exaggerated thoracic kyphosis and minor flattening of lumbar lordotic curvature. Lumbar paraspinous muscle shows symmetrical on inspection, on palpation shows some moderate tenderness diffusely bilaterally, but only diffusely without significant radiation. The patient shows good rotational motion of lumbar spine, both laterally as well as extension and flexion without significant difficulty. EXTREMITIES: The patient's lower extremities show deep tendon reflexes 2+ in the patellar, 1+ tendo-calcaneus tendons. Motor exam is 5/5 with dorsiflexion, extension bilaterally. Peripheral pulses are 1+ posterior tibia. No peripheral edema is noted. Options were discussed with the patient. The patient's old chart was reviewed as her current medication regimen updated. Current review of systems updated today as well. We will proceed with a second in a series of lumbar epidural steroid injection today with fluoroscopic guidance. Risks were discussed including but not limited to bleeding, infection, possibility of epidural hematoma, subsequent neurological compromise, dural puncture, headaches, spinal cord and/or nerve damage, side effects of steroid medication and poor results regarding pain control. The patient understands and wished to proceed. The patient will return to clinic in approximately 2 weeks for followup, was counseled on return appointment, activity level and side effects to be aware of. DIAGNOSIS: Lumbar radiculopathy with lumbar degenerative disk disease. PROCEDURE: Lumbar epidural steroid injection, translaminar approach at L5-S1 level using C-arm fluoroscopic guidance under sterile prep and drape using local anesthetic. MEDICATION INJECTED: A total of 120 mg Depo-Medrol plus 10 mL of preservative-free normal saline and 2 mL of contrast. CONDITION AT DISCHARGE: Stable. The patient tolerated procedure well, had no complications. BRANDY MARTINEZ MD DR: OSCAR/jason JOB#: [id number] / [id number]
== END | disposition home or self-care (01) ==
LOC: PNCL 09:23
PROVIDERS: ATTEND Anesthesiology
DX: M51.16 Intervertebral disc disorders with radiculopathy, lumbar region (principal); Z79.899 Other long term (current) drug therapy
CPT/HCPCS: 62323; J1030; J1040; Q9965

== ENCOUNTER → 2020-02-15 | Outpatient (CLI) | payer BC ==
--- NOTE | 2020-02-15 09:17 | PDOC ---
Progress Note - Pain Clinic Date of Service: DOS: DATE: 02/15/20 TIME: 09:12 Diagnosis: Dx: Lumbar radiculopathy with lumbar degenerative disc disease Cervical radiculopathy with cervical degenerative disc disease History or Present Illness: HPI: 49-year-old female returns follow-up status post lumbar epidural steroid injections x2 last seen December 17, 2019. Patient reports did very well with her l ow back and left lower extremity pain about 50% improvement overall and still improved patient's chief complaint however is pain in the base the neck and right upper extremity radiating in the right arm shoulder forearm and hand with numbness and tingling stabbing described as radiating and severe with repetitive motions weight bearing lifting reaching over her head with her right arm patient reports is been going on for about 2 months now actually increasing not the result of any specific injury or accident that she is aware of rates her pain is a 10 on scale 10 is worse over the past week 9 on average 8 its least is a 9 today patient reports it can cause headaches difficulty with sleeping especially laying on her left side causing pain on the right patient reports no loss of motor function but significant fatigability with the right upper extremity with any repetitive motion weightbearing weight lifting or reaching. Physical Exam: VS: Blood pressure is 154/113 pulse 99 respiration 16 temperature is 90.5 F and weight is 305 pounds PE: PHYSICAL EXAMINATION: GENERAL: The patient is awake, alert, oriented, appropriate, very pleasant demeanor HEENT: Shows normocephalic, atraumatic. Extraocular movements are intact and symmetrical. Oral cavity: Mucous membranes moist and pink. NECK: Shows anterior throat supple without palpable lymphadenopathy noted. Swallow reflex symmetrical. CHEST: Shows normal on inspection. Breath sounds are clear bilaterally, no r ales rhonchi or wheezes auscultated. HEART: Shows S1, S2 clear. No murmurs auscultated. ABDOMEN: Soft, nontender, nondistended, obese. No palpable organomegaly is noted. No rebound or guarding demonstrated. BACK: Shows spine grossly in the midline. Normal-appearing cervical lordotic curvature. There is slightly increased thoracic kyphosis, some minor flattening of the lumbar lordotic curvature. Lumbar paraspinous muscles show symmetrical on inspection, on palpation shows some moderate tenderness diffusely throughout the upper, middle and lower distribution of the paraspinous muscles bilaterally without specific trigger points, without radiation of pain. The patient has good rotational motion of the lumbar spine, both laterally as well as extension and flexion without significant difficulty. No tenderness over the spinous processes, sacrum or sacroiliac regions. EXTREMITIES: upper extremities show deep tendon reflexes 2+ in the biceps and triceps tendons. Motor exam is 4 on a scale of 5 with right meterman, biceps and triceps flexion and 5/5 on the left. Peripheral pulses are 2+ radial. No peripheral edema is noted bilaterally. Upper extremities are warm and dry to touch, equal in color and appearance. Shoulder shrug is strong and intact without loss of strength on resistance but with moderate pain base the neck and the right shoulder this is true with abduction of the right shoulder as well but no loss of strength on resistance. SKIN: Shows warm and dry, good turgor. No edema. No sores, rashes or bruising throughout. Procedure: Procedure: Options were discussed with the patient. Patient's old chart was reviewed as her current medication regimen updated current review of systems updated today as well. We will proceed with a cervical epidural steroid injection today with fluoroscopic guidance. Risks were discussed including but not limited to: Bleeding, infection, possibility of epidural hematoma and subsequent neurological compromise, dural puncture, headaches, spinal cord and/or nerve damage, side effects of steroid medication, and poor results regarding pain control. Patient understands wished to proceed. Patient return to clinic in approximate 2 weeks for follow-up was counseled as to return appointment activity level and side effects to be aware of. Medication Injected: Med Injected: Procedure cervical epidural steroid injection at the C6-7 level, using local anesthetic under sterile prep and drape using C-arm fluoroscopic guidance under local anesthesia medications injected ; 120 mg Depo-Medrol + 5 mL normal saline and 2 mL contrast; condition at discharge is stable patient tolerated procedure well. and had no complications Condition at Discharge: Condition at Discharge: Condition at discharge stable patient tolerated procedure well had no complications. BRANDY MARTINEZ MD Feb 15, 2020 09:17
== END | disposition home or self-care (01) ==
LOC: PNCL 08:22
PROVIDERS: ATTEND Anesthesiology
DX: M50.123 Cervical disc disorder at C6-C7 level with radiculopathy (principal); M51.16 Intervertebral disc disorders with radiculopathy, lumbar region; I10 Essential (primary) hypertension; Z83.3 Family history of diabetes mellitus; Z79.899 Other long term (current) drug therapy
CPT/HCPCS: 62321; J1030; J1040; Q9965

== ENCOUNTER → 2020-03-20 | Outpatient (CLI) | payer BC ==
[~2020-03-20] MED LIST changes: -IOHEXOL 180 MG/ML 10 ML VIAL. ONE; -methylPREDNISolone ACETATE 40 MG/ML VIAL. ONE; -methylPREDNISolone ACETATE 80 MG/ML VIAL. ONE
--- NOTE | 2020-03-20 10:18 | PDOC ---
Progress Note - Pain Clinic Date of Service: DOS: DATE: 03/20/20 TIME: 10:15 Diagnosis: Dx: Lumbar radiculopathy with lumbar degenerative disc disease Cervical radiculopathy with cervical degenerative disc disease History or Present Illness: HPI: 49-year-old female returns follow-up status post lumbar epidurals or injections x2 and cervical epidural injection x1. Patient reports about 65 to 70% i mprovement but the pain is returning now especially in the low back which is her main complaint. Patient reports is worse with walking standing changing positions better with sitting or laying down does not awaken from sleep at night generally patient reports pain is aching sharp dull tight shooting stabbing and tingling radiating into the lower extremity specially on the left side posterior gluteus posterior thigh and lateral thigh as well. Patient reports her pain is a 10 on scale 10 is worse the past week 9 on average 8 its least is 8 today. Patient reports no loss of motor function but significant pain with activity walking standing especially getting up from seated position and standing for more than about 10 to 15 minutes. Patient reports no loss of motor function no bowel or bladder incontinence Physical Exam: VS: Blood pressure is 147/84 pulse 79 respirations 18 temperature 98.7 F height is 5 feet 7 inches weight is 240 PE: PHYSICAL EXAMINATION: GENERAL: The patient is awake, alert, oriented, appropriate, very pleasant demeanor HEENT: Shows normocephalic, atraumatic. Extraocular movements are intact and symmetrical. Oral cavity: Mucous membranes moist and pink. Dentition is intact. NECK: Shows anterior throat supple without palpable lymphadenopathy noted. Swallow reflex symmetrical. CHEST: Shows normal on inspection. Breath sounds are clear bilaterally, no rales rhonchi or wheezes. HEART: Shows S1, S2 clear. No murmurs auscultated. ABDOMEN: Soft, nontender, nondistended, obese. No palpable organomegaly is noted. No rebound or guarding demonstrated. BACK: Shows spine grossly in the midline. Normal-appearing cervical lordotic curvature. There is slightly increased thoracic kyphosis, some minor flattening of the lumbar lordotic curvature. Lumbar paraspinous muscles show symmetrical on inspection, on palpation shows some moderate tenderness diffusely throughout the upper, middle and lower distribution of the paraspinous muscles, but without specific trigger points, without radiation of pain. The patient has good rotational motion of the lumbar spine, both laterally as well as extension and flexion without significant difficulty. No tenderness over the spinous processes, sacrum or sacroiliac regions. EXTREMITIES: Lower extremities show deep tendon reflexes 2+ in the patellar and tendo calcaneus tendons. Motor exam is 4 on a scale of 5 with right dorsiflexion, extension, quadriceps and hamstring flexion and 5/5 on the left. Peripheral pulses are 1+ posterior tibial. No peripheral edema is noted bilaterally. Lower extremities are warm and dry to touch, equal in color and appearance. SKIN: Shows warm and dry, good turgor. No edema. No sores, rashes or bruising throughout. Procedure: Procedure: Options were discussed with the patient. Patient chart was reviewed as her current medication regimen updated current review of systems updated today as well. We will authorize for MRI scan lumbar spine as patient still has radicular pain returning after good response from epidural injections however has not had MRI scan studies. We will also schedule for physical therapy with water therapy as I feel this may be very beneficial for her low back pain. Patient also given prescription for tramadol 50 mg with instructions side effects to be aware of. Patient return to clinic after MRI scan, and start of physical therapy, water therapy. Medication Injected: Med Injected: None Condition at Discharge: Condition at Discharge: Condition at discharge is stable. BRANDY MARTINEZ MD Mar 20, 2020 10:18
== END | disposition home or self-care (01) ==
LOC: PNCL 09:04
PROVIDERS: ATTEND Anesthesiology
DX: M51.16 Intervertebral disc disorders with radiculopathy, lumbar region (principal); M50.10 Cervical disc disorder with radiculopathy, unspecified cervical region; I10 Essential (primary) hypertension; E03.9 Hypothyroidism, unspecified; F41.9 Anxiety disorder, unspecified; F32.9 Major depressive disorder, single episode, unspecified; Z98.51 Tubal ligation status; Z90.710 Acquired absence of both cervix and uterus; Z98.890 Other specified postprocedural states; Z79.899 Other long term (current) drug therapy; Z87.891 Personal history of nicotine dependence
CPT/HCPCS: 99212; G0463

== ENCOUNTER → 2020-03-22 | Outpatient (CLI) | payer BC ==
--- NOTE | 2020-03-22 12:48 | KCIC ---
LUMBAR SPINE WO CONTRAST Date: 03/22/2020 11:00 AM Indication: LUMBAR RADICULOPATHY. LBP into BLE for several months. NKI. Comparison: None. Technique: Multi-planar multi-weighted magnetic resonance imaging of the lumbar spine was performed without intravenous contrast using the standard lumbar spine protocol. FINDINGS: The lumbar spine is normally aligned. No acute fracture. Mild multilevel degenerative disc desiccation and disc height loss. Mild fatty degenerative endplate changes at L3-4. The conus terminates at a normal level. No abnormal signal is seen within the visualized distal spinal cord. No clumping of intrathecal nerve roots. No soft tissue abnormality in the visualized abdomen or pelvis. T12-L1: No disc bulge. No facet arthropathy. No significant spinal stenosis or neural foraminal narrowing. L1-L2: Disc bulge. Mild facet arthropathy. No significant spinal stenosis or neural foraminal narrowing. L2-L3: Disc bulge. Mild right and moderate left facet arthropathy. No significant spinal stenosis. Moderate left lateral recess narrowing. Mild left neural foraminal narrowing. L3-L4: Disc bulge. Severe facet arthropathy. No significant spinal stenosis or neural foraminal narrowing. L4-L5: Disc bulge. Severe facet arthropathy. No significant spinal stenosis. Mild left lateral recess narrowing. Mild left neural foraminal narrowing. L5-S1: Disc bulge. Moderate right and mild left facet arthropathy. No significant spinal stenosis or neural foraminal narrowing. IMPRESSION: Mild to moderate lumbar spondylosis, detailed level by level above. No high-grade spinal canal stenosis. Electronically signed by: Alphonse Carnes MD (03/22/2020 12:45 PM) [id number]
== END | disposition home or self-care (01) ==
LOC: KCIC MRI 10:32
PROVIDERS: ATTEND Anesthesiology
DX: M47.26 Other spondylosis with radiculopathy, lumbar region (principal); M51.16 Intervertebral disc disorders with radiculopathy, lumbar region; I10 Essential (primary) hypertension; E03.9 Hypothyroidism, unspecified; F41.9 Anxiety disorder, unspecified; F32.9 Major depressive disorder, single episode, unspecified; Z90.49 Acquired absence of other specified parts of digestive tract; Z98.51 Tubal ligation status; Z98.890 Other specified postprocedural states; Z79.899 Other long term (current) drug therapy; Z87.891 Personal history of nicotine dependence
CPT/HCPCS: 72148

== ENCOUNTER 2020-08-06 02:03 | Emergency (ER) | payer BC ==
[~2020-08-06] VITALS: Ht 170.2 cm; Wt 136.4 kg
--- NOTE | 2020-08-06 02:28 | PHYS DOC ---
Past Medical History Past Medical History: Anxiety, Depression, Kidney Stone Past Surgical History: Cholecystectomy, Tubal ligation, Other Additional Past Surgical Histo: left knee, radio frequency on back Smoking Status: Former Smoker Alcohol Use: None Drug Use: None General Adult EDM: Chief Complaint: UPPER EXTREMITY PAIN HPI: HPI: 50 yo F past medical history of anxiety depression, nephrolithiasis chronic back pain follows with pain management, presents the ED with complaints of left posterior neck and left anterior shoulder pain that started suddenly after patient was stretching her left shoulder. Daughter reports she saw her put her hands behind her head/yawning stretching. When pt rotated arm forward in abduction and flexion motion (as a pitcher would throw a ball), patient reports she felt a sudden pop. Sudden onset of pain in left neck and left anterior shoulder with difficulty turning head to the left. Denies any recent fluoroquinolone use. Reports she has been having left shoulder pain for the past 5 days. No associated chest discomfort/pressure/tight/squeezing sensation, upper back discomfort, nausea, vomiting, diaphoresis, as of breath. No prior injury to her left neck or left shoulder. Review of Systems: Review of Systems: Constitutional: Denies fever or chills. [] Eyes: Denies change in visual acuity. [] HENT: Denies nasal congestion or sore throat. [] Respiratory: Denies cough or shortness of breath. [] Cardiovascular: Denies chest pain or edema. [] GI: Denies abdominal pain, nausea, vomiting, bloody stools or diarrhea. [] : Denies dysuria. [] Musculoskeletal: Denies back pain or midline neck pain Integument: Denies rash. [] Neurologic: Denies headache, focal weakness or sensory changes. [] Endocrine: Denies polyuria or polydipsia. [] Lymphatic: Denies swollen glands. [] Psychiatric: Denies depression or anxiety. [] Heart Score: C/O Chest Pain: No Risk Factors: Risk Factors: DM, Current or recent (<one month) smoker, HTN, HLP, family history of CAD, obesity. Risk Scores: Score 0 - 3: 2.5% MACE over next 6 weeks - Discharge Home Score 4 - 6: 20.3% MACE over next 6 weeks - Admit for Clinical Observation Score 7 - 10: 72.7% MACE over next 6 weeks - Early Invasive Strategies Current Medications: Current Medications Medications (Trade) Dose Ordered Sig/Bean Start Time Stop Time Status Last Admin Dose Admin Acetaminophen (Tylenol) 650 mg 1X ONCE 08/06/20 02:30 08/06/20 02:31 Diazepam (Valium) 10 mg 1X ONCE 08/06/20 02:30 08/06/20 02:31 Ketorolac Tromethamine (Toradol 30mg Vial) 30 mg 1X ONCE 08/06/20 02:30 08/06/20 02:31 Lidocaine (Lidoderm) 1 patch ONCE ONCE 08/06/20 02:30 08/06/20 02:31 Allergies: Allergies: Allergies Coded Allergies Type Severity Reaction Last Updated Verified No Known Drug Allergies 05/14/13 No Physical Exam: PE: Constitutional: Uncomfortable on arrival/in pain, non-toxic appearance. HENT: Normocephalic, atraumatic, very tight left trapezius muscle over left shoulder w/ttp, ttp reproduced over left anterior shoulder deltoid and bicipital groove, Eyes: EOMI, conjunctiva normal, no discharge. Neck: Normal range of motion, supple, Cardiovascular: S1/2 present, regular rhythm Lungs & Thorax: Speaking in full sentences, bilateral equal chest rise, no tachypnea or increased work of breathing Abdomen: soft, no tenderness, Skin: Warm, dry, Back: No midline spinal tenderness, no CVA tenderness. [] Extremities: no upper extremity edema, equal radial pulses, no deformities or decreased range of motion, median/radial/ulnar nerve sensation intact bilaterally, is holding her arm across to her left chest-pain worsens with flexion/extension of shoulder joint Neurologic: Alert and oriented X 3, normal motor function, normal sensory function, no focal deficits noted. [] Psychologic: Affect normal, judgement normal, mood normal. [] EKG: EKG: Sinus tachycardia 101 bpm, no axis deviation, normal intervals, no T wave inversions, no ST elevations or ST depressions Radiology/Procedures: Radiology/Procedures: IMAGING REPORT Signed PATIENT: GABRIEL MARTINEZ ACCOUNT: [id number] : 1970 LOCATION: ER AGE: 50 SEX: F EXAM STATUS: REG ER ORD. PHYSICIAN: SHAYLEE GRUBBS DO REASON: neck pain PROCEDURE: CHEST AP ONLY AP chest x-ray HISTORY: Neck pain. FINDINGS: Heart size is normal. Mediastinal silhouette is normal. No pneumothorax, pulmonary opacities or pleural effusions. Bones are unremarkable. IMPRESSION: No acute process in the chest. Left shoulder scapula Y and AP internal/external x-rays 3 views HISTORY: Left neck and shoulder pain, heard a pop. FINDINGS: No fracture. No dislocation. No bone lesion. No separation of the acromioclavicular joint. Mild arthrosis of the acromioclavicular joint with mild clavicle osteophyte. IMPRESSION: No acute osseous injury of the left shoulder. Electronically signed by: Dylan Brewer MD (08/06/2020 3:56 AM) [facility] DICTATED and SIGNED BY: DYLAN BREWER MD DATE: 08/06/20 [id number] 0 IMAGING REPORT Signed PATIENT: GABRIEL MARTINEZ ACCOUNT: [id number] : 1970 LOCATION: ER AGE: 50 SEX: F EXAM STATUS: REG ER ORD. PHYSICIAN: SHAYLEE GRUBBS DO REASON: hear d a pop PROCEDURE: SHOULDER 2+V LEFT AP chest x-ray HISTORY: Neck pain. FINDINGS: Heart size is normal. Mediastinal silhouette is normal. No pneumothorax, pulmonary opacities or pleural effusions. Bones are unremarkable. IMPRESSION: No acute process in the chest. Left shoulder scapula Y and AP internal/external x-rays 3 views HISTORY: Left neck and shoulder pain, heard a pop. FINDINGS: No fracture. No dislocation. No bone lesion. No separation of the acromioclavicular joint. Mild arthrosis of the acromioclavicular joint with mild clavicle osteophyte. IMPRESSION: No acute osseous injury of the left shoulder. Electronically signed by: Dylan Brewer MD (08/06/2020 3:56 AM) [facility] DICTATED and SIGNED BY: DYLAN BREWER MD DATE: 08/06/20 [id number] IMAGING REPORT Signed PATIENT: GABRIEL MARTINEZ ACCOUNT: [id number] : 1970 LOCATION: ER AGE: 50 SEX: F EXAM STATUS: REG ER ORD. PHYSICIAN: SHAYLEE GRUBBS DO REASON: left sided neck pain PROCEDURE: CT CERVICAL SPINE WO CONTRAST CT cervical spine without contrast HISTORY: Left-sided neck pain. PQRS statement: CT scans at this facility use dose reduction including either automated exposure control, iterative reconstructions, and /or weight based radiation dosing via mA and kV modification when appropriate to reduce radiation dose to as low as reasonably achievable. FINDINGS: Craniocervical junction intact. Cervical vertebral body height and alignment intact. No fracture of the cervical spine. Multilevel uncovertebral and facet spurring with neural foraminal stenoses of the cervical spine. Cervical disc osteophyte C5-C6 and C6-C7 may contribute to spinal canal stenosis. Linear disease and paraspinal tissues are unremarkable. IMPRESSION: No acute osseous injury of the cervical spine. Electronically signed by: Dylan Brewer MD (08/06/2020 5:18 AM) [facility] DICTATED and SIGNED BY: DYLAN BREWER MD DATE: 08/06/20 [id number] 0 Course & Med Decision Making: Course & Med Decision Making Pertinent Labs and Imaging studies reviewed. (See chart for details) Concern for left neck and shoulder musculoskeletal injury vs sprain/strain >> neuropathy versus atypical chest pain versus life-threatening aortic process. Patient reports significant relief with pain medications and is now able to move her left shoulder/rotation/flexion extension. Will provide shoulder sling but understands risk of frozen shoulder joint. 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 Follows with pain management. Daughter at bedside in her room -patient and I discussed atypical chest pain symptoms that would prompt strict immediate ED return for reevaluation (ACS, PE, AAA/AAD sxs). Daughter confirms pt looks well. Pt with significant relief of pain. Rice instructions given with conservative management. Encouraged urgent outpatient follow-up with PMD and orthopedic surgery as needed-may benefit from MRI of symptoms persist. Life- threatening processes were considered but are low suspicion at this time, given history, physical exam and ED workup. Pt was educated on all prescription medications and adverse effects. All patient's questions were answered and pt was stable at time of discharge. Life/limb-threatening differential includes but is not limited to, trauma (fracture, dislocation, laceration, compartment syndrome, tendon or ligament injury), neurovascular injury or deficitcva/tia, AAD, infection (osteomyelitis, abscess, cellulitis, septic arthritis, necrotizing fasciitis), deep vein thrombosis, renal/cardiac/liver disease, medication adverse effect, lymphedema/anasarca, vascular insufficiency or malignancy, I spoken with the patient and her caregivers. I explained the patient's condition, diagnoses and treatment plan based on the information available to me at this time. I have answered the patient and her caregiver's questions and addressed any concerns. The patient and her caregivers have a good understanding of patient's diagnosis, condition and treatment plan as can be expected at this point. Vital signs have been stable. Patient's condition is stable and appropriate for discharge from the emergency department. Patient will pursue further outpatient evaluation with primary care physician or other designated or consulting physician as outlined in the discharge instructions. The patient and/or caregivers are agreeable to this plan of care and follow-up instructions have been explained in detail. The patient and/or caregivers have received these instructions in written form and have expressed an understanding of the discharge instructions. The patient and/or caregivers are aware that any significant change of condition or worsening of symptoms should prompt immediate return to this or the closest emergency department or call to 911. Pedro Disclaimer: Pedro Disclaimer: This electronic medical record was generated, in whole or in part, using a voice recognition dictation system. Departure Departure Impression: Primary Impression: Neck pain on left side Additional Impression: Left shoulder pain Disposition: 01 DC HOME SELF CARE/HOMELESS Condition: STABLE Referrals: TEJ CRUM MD (PCP) in 2-3 days Patient Instructions: Musculoskeletal Pain, Shoulder Pain Additional Instructions: EMERGENCY DEPARTMENT GENERAL DISCHARGE INSTRUCTIONS Thank you for coming to [facility] Emergency Department (ED) today and trusting us with you care. We trust that you had a positive experience in our Emergency Department. If you wish to speak to the department management, you may call the Director at [phone]. YOUR FOLLOW UP INSTRUCTIONS ARE FOLLOWS: 1. Do you have a private Doctor? If you do not have a private doctor, please ask for a resource list of physicians or clinics that may be able to assist you with follow up care. 2. The Emergency Physicain has interpreted your x-rays. The X-Ray specialist will also review them. If there is a change in the findings, you will be notified in 48 hours when at all possible. 3. A lab test or culture has been done, your results will be reviewed and you will be notified if you need a change in treatment. ADDITIONAL INSTRUCTIONS AND INFORMATION: 1. Your care today has been supervised by a physician who is specially trained in emergency care. Many problems require more than one evaluation for a complete diagnosis and treatment. We recommend that you schedule your follow up appointment as recommended to ensure complete treatment of you illness or injury. If you are unable to obtain follow up care and continue to have a problem, or if your condition worsens, we recommend that you return to the ED. 2. We are not able to safely determine your condition over the phone nor are we able to give sound medical advice over the phone. For these safety reasons, if you call for medical advice we will ask you to come to the ED for further evaluation. 3. If you have any questions regarding these discharge instructions please call the ED at [phone]. SAFETY INFORMATION: In the interest of safety, wellness, and injury prevention; we encourage you to wear your sealbelt, if you smoke; quite smoking, and we encourage family to use a protective helmet for bicycling and other sporting events that present an increased risk for head injury. IF YOUR SYMPTOMS WORSEN OR NEW SYMPTOMS DEVELOP, OR YOU HAVE CONCERNS ABOUT YOUR CONDITION; OR IF YOUR CONDITION WORSENS WHILE YOU ARE WAITING FOR YOUR FOLLOW UP APPOINTMENT; EITHER CONTACT YOUR PRIMARY CARE DOCTOR, THE PHYSICIAN WHOSE NAME AND NUMBER YOU WERE GIVEN, OR RETURN TO THE ED IMMEDIATELY. Scripts Lidocaine (Lido Robby) 1 Each Adh..patch 1 EACH TP DAILY for 5 Days, #5 PATCH 5% Apply 1 patch for 12 hours, remove for another 12 hours. May repeat, 1 patch per day as instructed above. Prov: SHAYLEE GRUBBS DO 08/06/20 Methocarbamol (ROBAXIN-750) 750 Mg Tablet 1 TAB PO TID PRN for PAIN, #30 TAB 0 Refills Prov: SHAYLEE GRUBBS DO 08/06/20 SHAYLEE GRUBBS DO Aug 06, 2020 02:28
[2020-08-06] MEDS ORDERED: KETOROLAC 30 MG/ML VIAL. IM ONE (02:30)
[2020-08-06] MEDS ORDERED: LIDOCAINE (700MG/PATCH) PATCH. TD ONE (02:30)
[2020-08-06] MEDS ORDERED: diazePAM 5 MG TABLET PO ONE (02:30)
[2020-08-06] MEDS ORDERED: ACETAMINOPHEN 325 MG TABLET. PO ONE (02:30)
--- NOTE | 2020-08-06 03:59 | RAD ---
AP chest x-ray HISTORY: Neck pain. FINDINGS: Heart size is normal. Mediastinal silhouette is normal. No pneumothorax, pulmonary opacitie s or pleural effusions. Bones are unremarkable. IMPRESSION: No acute process in the chest. Left shoulder scapula Y and AP internal/external x-rays 3 views HISTORY: Left neck and shoulder pain, heard a pop. FINDINGS: No fracture. No dislocation. No bone lesion. No separation of the acromioclavicular joint. Mild arthrosis of the acromioclavicular joint with mild clavicle osteophyte. IMPRESSION: No acute osseous injury of the left shoulder. Electronically signed by: Florencio Brewer MD (08/06/2020 3:56 AM) [facility]
--- NOTE | 2020-08-06 04:41 | EKG ---
[facility] [address] [place] [address] Test Date: 2020-08-06 Test Time: 02:20:02 Pat Name: GABRIEL MARTINEZ Department: Room: Gender: F [employer]: : 1970 Requested By: SHAYLEE GRUBBS Order Number: [id number] Reading MD: Measurements Intervals [place] Rate: 101 P: 32 MT: 156 QRS: 52 QRSD: 68 T: 55 QT: 328 QTc: 432 Interpretive Statements SINUS TACHYCARDIA OTHERWISE NORMAL ECG RI6.02 No previous ECG available for comparison
--- NOTE | 2020-08-06 05:21 | RAD ---
CT cervical spine without contrast HISTORY: Left-sided neck pain. PQRS statement: CT scans at this facility use dose reduction including either automated exposure cont rol, iterative reconstructions, and /or weight based radiation dosing via mA and kV modification when appropriate to reduce radiation dose to as low as reasonably achievable. FINDINGS: Craniocervical junction intact. Cervical vertebral body height and alignment intact. No fra cture of the cervical spine. Multilevel uncovertebral and facet spurring with neural foraminal stenos es of the cervical spine. Cervical disc osteophyte C5-C6 and C6-C7 may contribute to spinal canal quinn nosis. Linear disease and paraspinal tissues are unremarkable. IMPRESSION: No acute osseous injury of the cervical spine. Electronically signed by: Florencio Brewer MD (08/06/2020 5:18 AM) [facility]
[2020-08-06 05:39] VITALS: BP 133/62
[2020-08-06] MEDS ORDERED: METH-38 PO (05:45)
[2020-08-06] MEDS ORDERED: LIDO1ADH78 TP (05:53)
[2020-08-06] MEDS ORDERED: DEXAMETHASONE 4 MG TABLET ONE (05:53)
[2020-08-06] MEDS ORDERED: DEXAMETHASONE 4 MG TABLET PO ONE (06:00)
== END 2020-08-06 06:00 | disposition home or self-care (01) ==
LOC: ER 02:03
DX: M54.2 Cervicalgia (principal); M25.512 Pain in left shoulder; F41.9 Anxiety disorder, unspecified; F32.9 Major depressive disorder, single episode, unspecified; G89.29 Other chronic pain; F17.200 Nicotine dependence, unspecified, uncomplicated; Z90.49 Acquired absence of other specified parts of digestive tract; Z98.51 Tubal ligation status; Z87.442 Personal history of urinary calculi; Z98.890 Other specified postprocedural states
CPT/HCPCS: 71045; 72125; 73030; 93005; 96372; 99285; A4565; J1885

== ENCOUNTER → 2020-10-02 | Outpatient (CLI) | payer BC ==
[~2020-10-02] MED LIST changes: +IOHEXOL 180 MG/ML 10 ML VIAL. ONE; +LIDO1ADH78 TP; +METH-38 PO; +methylPREDNISolone ACETATE 40 MG/ML VIAL. ONE; +methylPREDNISolone ACETATE 80 MG/ML VIAL. ONE
--- NOTE | 2020-10-02 09:30 | PDOC ---
Progress Note - Pain Clinic Date of Service: DOS: DATE: 10/02/20 TIME: 09:27 Diagnosis: Dx: Lumbar radiculopathy with lumbar degenerative disc disease Cervical radiculopathy with cervical degenerative disc disease Left shoulder joint pain History or Present Illness: HPI: 50-year-old female returns for follow-up status post cervical and lumbar epidurals or injections last seen March 20, 2020 patient did very well after epidural injections with 50 to 70% improvement in the pain returning down the low back and more in the left lower extremity than the right but present bilaterally posterior gluteus posterior thigh posterior calf and again across the low back significantly patient reports has been increasing over the past month or 2 initially she was about 70% better distance walking doing household activities work activities travel with greater ease sleeping better at night still is not bothersome at night is not awaken her from sleep better with sitting or laying down worse with standing and walking especially standing patie nt rates pain is a 9 on scale 10 is worse with past week 9 on average 8 its least is a 9 today patient was aching sharp dull tight radiating constant tingling burning in the low back itself in the bilateral lower extremities again slightly worse on the left. Patient reports no new motor or sensory deficits no new bowel or bladder incontinence or other complaints. Physical Exam: VS: Blood pressure is 144/93 pulse 87 respirations 18 temperature 99.0 F height is 5 feet 7 inches weight is 306 pounds PE: PHYSICAL EXAMINATION: GENERAL: The patient is awake, alert, oriented, appropriate, very pleasant demeanor HEENT: Shows normocephalic, atraumatic. Extraocular movements are intact and symmetrical. Oral cavity: Mucous membranes moist and pink. NECK: Shows anterior throat supple without palpable lymphadenopathy noted. Swallow reflex symmetrical. CHEST: Shows normal on inspection. Breath sounds are clear bilaterally, no rales rhonchi wheezes auscultated. HEART: Shows S1, S2 clear. No murmurs auscultated. ABDOMEN: Soft, nontender, nondistended, obese. No palpable organomegaly is noted. No rebound or guarding demonstrated. BACK: Shows spine grossly in the midline. Normal-appearing cervical lordotic curvature. There is increased thoracic kyphosis, some flattening of the lumbar lordotic curvature. Lumbar paraspinous muscles show symmetrical on inspection, on palpation shows some moderate tenderness diffusely throughout the upper, middle and lower distribution of the paraspinous muscles without specific trigger points, without radiation of pain. The patient has good rotational mo tion of the lumbar spine, both laterally as well as extension and flexion without significant difficulty. No tenderness over the spinous processes, sacrum or sacroiliac regions. EXTREMITIES: Lower extremities show deep tendon reflexes 2+ in the patellar and tendo calcaneus tendons. Motor exam is 4 on a scale of 5 with right dorsiflexion, extension, quadriceps and hamstring flexion and 5/5 on the left. Peripheral pulses are 1+ posterior tibial. No peripheral edema is noted bilaterally. Lower extremities are warm and dry to touch, equal in color and appearance. SKIN: Shows warm and dry, good turgor. No edema. No sores, rashes or bruising throughout. Procedure: Procedure: Options were discussed with the patient. Patient chart reviews her current medication regimen updated current review of systems updated today as well. We will proceed with a lumbar epidural steroid injection today with fluoroscopic guidance. Risks were discussed including but not limited to: Bleeding, infection, possibility of epidural hematoma and subsequent neurological compromise, dural puncture, headaches, spinal cord and/or nerve damage, side effects of steroid medication, and poor results regarding pain control. Patient understands and wished to proceed. Patient will return to the clinic in approximate 2 weeks for follow-up, was counseled as return appointment activity level and side effects to be aware of. Medication Injected: Med Injected: Procedure is lumbar epidural steroid injection under local anesthetic using sterile prep and drape at the L5-S1 level using C-arm fluoroscopic guidance in both AP and lateral views medications injected is 120 mg Depo-Medrol +10mL preservative-free normal saline and 2 mL contrast- condition at discharge is stable patient tolerated procedure well had no complications. Condition at Discharge: Condition at Discharge: Condition at discharge stable, patient tolerated the procedure well and had no complications. BRANDY MARTINEZ MD October 02, 2020 09:30
--- NOTE | 2020-10-02 09:31 | PDOC4 ---
PROCEDURE Procedure Patient is consented for lumbar epidural steroid injection. Risks were disc ussed including but not limited to: Bleeding, infection, possibility of epidural hematoma and subsequent neurological compromise, dural puncture, headaches, spinal cord and/or nerve damage, side effects of steroid medication, and poor results regarding pain control. Patient understands and wished to proceed. Procedure is lumbar epidural steroid injection under local anesthetic using sterile prep and drape at the L5-S1 level using C-arm fluoroscopic guidance in both AP and lateral views medications injected is 120 mg Depo-Medrol +10mL preservative-free normal saline and 2 mL contrast- condition at discharge is stable patient tolerated procedure well had no complications. BRANDY MARTINEZ MD October 02, 2020 09:31
== END | disposition home or self-care (01) ==
LOC: PNCL 08:07
PROVIDERS: ATTEND Anesthesiology
DX: M51.16 Intervertebral disc disorders with radiculopathy, lumbar region (principal); M50.10 Cervical disc disorder with radiculopathy, unspecified cervical region; M25.512 Pain in left shoulder; I10 Essential (primary) hypertension; E03.9 Hypothyroidism, unspecified; F41.9 Anxiety disorder, unspecified; F32.9 Major depressive disorder, single episode, unspecified; Z90.49 Acquired absence of other specified parts of digestive tract; Z98.890 Other specified postprocedural states; Z98.51 Tubal ligation status; Z87.891 Personal history of nicotine dependence; Z79.899 Other long term (current) drug therapy
CPT/HCPCS: 62323; J1030; J1040; Q9965

== ENCOUNTER → 2020-10-19 | Outpatient (CLI) | payer BC ==
[~2020-10-19] MED LIST changes: -IOHEXOL 180 MG/ML 10 ML VIAL. ONE; -methylPREDNISolone ACETATE 40 MG/ML VIAL. ONE; -methylPREDNISolone ACETATE 80 MG/ML VIAL. ONE
--- NOTE | 2020-10-19 11:20 | PDOC ---
Progress Note - Pain Clinic Date of Service: DOS: DATE: 10/19/20 TIME: 11:14 Diagnosis: Dx: Lumbar to colopathy with lumbar degenerative disc disease Cervical radiculopathy with cervical degenerative disease Left shoulder joint pain History or Present Illness: HPI: 50-year-old female returns for follow-up status post lumbar epidural steroid traction x1 on October 02, 2020. Patient had called few days earlier and reported that she had a breakout and a infected painful area at the level of the shot which had appeared a few days after the shot. Patient was asked to come in today so we can examine it reports that that became more painful red and feels like she has been running a fever perhaps at home. Patient is not measured a fever directly. Patient reports her pain is a 10 on scale 10 is worse over the past week 9 on average 8 its least is a [address] is aching and sharp in the low back dull and shooting in the right lower extremity posterior gluteus posterior thigh posterior calf patient reports initially she was doing better with the pain but now that she has the infected area she has had more pain in the right gluteus and is more difficult to tell if the shot has helped or not patient reports is still does not awaken her from sleep at night even last night. Physical Exam: VS: Blood pressure is 164/90 pulse 70 respirations 18 temperature 98.8 F, height is 5 feet 7 inches weight is 300 pounds PE: PHYSICAL EXAMINATION: GENERAL: The patient is awake, alert, oriented, appropriate, very pleasant demeanor HEENT: Shows normocephalic, atraumatic. Extraocular movements are intact and symmetrical. NECK: Shows anterior throat supple without palpable lymphadenopathy noted. Swallow reflex symmetrical. CHEST: Shows normal on inspection. Breath sounds are clear bilaterally. HEART: Shows S1, S2 clear. No murmurs auscultated. ABDOMEN: Soft, nontender, nondistended. No palpable organomegaly is noted. No rebound or guarding demonstrated. BACK: Shows spine grossly in the midline. Normal-appearing cervical lordotic curvature. There is slightly increased thoracic kyphosis, some minor flattening of the lumbar lordotic curvature. Lumbar paraspinous muscles show symmetrical on inspection, on palpation shows some moderate tenderness diffusely throughout the upper, middle and lower distribution of the paraspinous muscles without specific trigger points, without radiation of pain. The site of the lumbar epidural steroid injection is no longer visible as it is completely healed. The patient has good rotational motion of the lumbar spine, both laterally as well as extension and flexion without significant difficulty. SKIN: Shows warm and dry, good turgor. No edema. Patient's right gluteus shows raised erythematous petechial region approximately 3 x 2 cm and oval-shaped which has no streaking no exudate is dry but tender with palpation without radiation. The area has an appearance of a localized yeast infection. Procedure: Procedure: Options were discussed with the patient. Patient's old chart was reviewed as her current medication regimen updated current review of systems updated today as well. We will give patient antibiotics Keflex 500 mg 3 times daily for 10days to cover any superinfection that may have occurred from an apparent skin infection on the right inferior medial gluteus. Again the area of concern is not the insertion site where she had her lumbar epidural steroid injection. Patient was instructed to keep it clean and dry and monitor it and call back with any questions we will start antibiotics today, as a precaution in case it has a superinfection from contact or scratching. Medication Injected: Med Injected: None Condition at Discharge: Condition at Discharge: Condition at discharge is stable. BRANDY MARTINEZ MD Oct 19, 2020 11:20
== END | disposition home or self-care (01) ==
LOC: PNCL 10:55
PROVIDERS: ATTEND Anesthesiology
DX: M51.16 Intervertebral disc disorders with radiculopathy, lumbar region (principal); M50.10 Cervical disc disorder with radiculopathy, unspecified cervical region; M25.512 Pain in left shoulder; E03.9 Hypothyroidism, unspecified; F41.9 Anxiety disorder, unspecified; F32.9 Major depressive disorder, single episode, unspecified; I10 Essential (primary) hypertension; Z90.49 Acquired absence of other specified parts of digestive tract; Z98.890 Other specified postprocedural states; Z87.891 Personal history of nicotine dependence; Z79.899 Other long term (current) drug therapy
CPT/HCPCS: 99212; G0463